=== PATIENT | male | born 1970 | race Caucasian/White ===

== ENCOUNTER → 2020-11-30 | Outpatient (CLI) | payer OTHER ==
[~2020-11-30] MED LIST: ATORVASTATIN CA40 MG PO; CARVEDILOL12.5 MG PO; DEMADEX20 MG PO; POTASSIUM20 PO; PRINIVIL20 MG PO
== END ==
LOC: SJCVCIMAG 08:30
PROVIDERS: ATTEND Internal Medicine
DX: I34.0 Nonrheumatic mitral (valve) insufficiency (principal); I77.819 Aortic ectasia, unspecified site; I11.0 Hypertensive heart disease with heart failure; I50.32 Chronic diastolic (congestive) heart failure